=== PATIENT | male | born 1945 | race Caucasian/White ===

== ENCOUNTER 2017-05-25 19:26 | Emergency (ER) | payer MEDICARE, OTHER ==
[2017-05-25 20:00] VITALS: BP 151/65
[2017-05-25] MEDS ORDERED: predniSONE 20 MG Tab PO ONE (21:45)
--- NOTE | 2017-05-25 21:50 | EDM.PDOC ---
ED HPI GENERAL MEDICAL PROBLEM - General Chief Complaint: Lower Extremity Injury/Pain Stated Complaint: POSSIBLE BROKEN FOOT Time Seen by Provider: 05/25/17 20:00 Source of Information: Reports: Patient History Limitations: Reports: No Limitations - History of Present Illness INITIAL COMMENTS - FREE TEXT/NARRATIVE: c/o pain to right foot and hurts to walk, sudden sharp onset last ellie while driving. Denies injury to foot. No similar episodes, No hx or arthritic problems. Location: Reports: Lower Extremity, Right Quality: Reports: Stabbing Worsens with: Reports: Other (weight bearing) Associated Symptoms: Reports: No Other Symptoms Right Feet Pain Score (Numeric/FACES): 8 - Related Data Allergies Allergy/AdvReac Type Severity Reaction Status Date / Time atorvastatin [From Lipitor] Allergy Muscle Verified 05/25/17 20:00 Aches Home Meds: Home Meds Carvedilol [Carvedilol] 6.25 mg PO DAILY 11/09/13 [History] Lisinopril [Lisinopril] 10 mg PO DAILY 11/09/13 [History] Pravastatin [Pravachol] 40 mg PO DAILY 11/09/13 [History] Warfarin Sodium [Warfarin Sodium] 5 mg PO DAILY 11/09/13 [History] Amoxicillin [Amoxicillin] 2,000 mg PO ASDIRECTED PRN 12/17/16 [History] Aspirin [Lo-Dose Aspirin EC] 81 mg PO DAILY 12/17/16 [History] Enoxaparin [Lovenox] 150 mg SUBCUT DAILY 12/17/16 [History] LORazepam [LORazepam] 1 tab PO BEDTIME PRN 12/17/16 [History] Past Medical History HEENT History: Reports: None Cardiovascular History: Reports: CAD, High Cholesterol, Hypertension Respiratory History: Reports: None Gastrointestinal History: Reports: Hemorrhoids Genitourinary History: Reports: BPH, Chronic Renal Insuffiency Musculoskeletal History: Reports: Arthritis, Back Pain, Chronic Neurological History: Reports: None Psychiatric History: Reports: None Endocrine/Metabolic History: Reports: Obesity/BMI 30+, Other (See Below) Other Endocrine/Metabolic History: Prediabetes Hematologic History: Reports: None Immunologic History: Reports: None Oncologic (Cancer) History: Reports: Bladder Dermatologic History: Reports: None - Infectious Disease History Infectious Disease History: Reports: Chicken Pox, Measles, Mumps - Past Surgical History HEENT Surgical History: Reports: Other (See Below) Cardiovascular Surgical History: Reports: Coronary Artery Bypass, Valve Replacement, Other (See Below) GI Surgical History: Reports: Colonoscopy Neurological Surgical History: Reports: C-Spine Other Neurological Surgeries/Procedures: Cervical disc surgery Musculoskeletal Surgical History: Reports: Other (See Below) Other Oncologic Surgeries/Procedures: bladder chemo. Cystourethroscopy with biopsy Social & Family History - Family History HEENT: Reports: None Cardiac: Reports: Blood Clots/VTE/DVT, CAD, High Cholesterol, Hypertension, [place] Respiratory: Reports: None GI: Reports: None : Reports: None OBGYN: Reports: None Musculoskeletal: Reports: None Neurological: Reports: None Psychiatric: Reports: None Endocrine/Metabolic: Reports: None Hematologic: Reports: None Immunologic: Reports: None Dermatologic: Reports: None Oncologic: Reports: Bladder - Tobacco Use Smoking Status *Q: Never Smoker Years of Tobacco use: 10 Used Tobacco, but Quit: Yes Month Tobacco Last Used: 1969 Second Hand Smoke Exposure: No - Caffeine Use Caffeine Use: Reports: Coffee, Tea - Alcohol Use Days Per Week of Alcohol Use: 0 - Recreational Drug Use Recreational Drug Use: No - Living Situation & Occupation Living situation: Reports: , with Family Occupation: Retired Review of Systems - Review of Systems Review Of Systems: See Below Constitutional: Reports: No Symptoms Eyes: Reports: No Symptoms Ears: Reports: No Symptoms Nose: Reports: No Symptoms Mouth/Throat: Reports: No Symptoms Respiratory: Reports: No Symptoms Cardiovascular: Reports: No Symptoms GI/Abdominal: Reports: No Symptoms Genitourinary: Reports: No Symptoms Musculoskeletal: Reports: Foot Pain Skin: Reports: No Symptoms Neurological: Reports: No Symptoms Psychiatric: Reports: No Symptoms ED EXAM, GENERAL - Physical Exam Exam: See Below Exam Limited By: No Limitations General Appearance: Alert, No Apparent Distress Ears: Normal External Exam Nose: Normal Inspection Throat/Mouth: Normal Inspection Head: Atraumatic, Normocephalic Neck: Normal Inspection Respiratory/Chest: No Respiratory Distress, Lungs Clear Cardiovascular: Normal Peripheral Pulses, Regular Rate, Rhythm Peripheral Pulses: 2+: Dorsalis Pedis (L), Dorsalis Pedis (R) GI/Abdominal: Normal Bowel Sounds, Soft, Non-Tender Extremities: Normal Range of Motion, Redness (right lateral forefoot) Neurological: Alert, Oriented, Normal Cognition Skin Exam: Warm, Dry, Intact. No: No Rash, Wound/Incision Course - Vital Signs Last Recorded V/S: Last Vital Signs Temp 97.5 F 05/25/17 19:48 Pulse 73 05/25/17 19:48 Resp 18 05/25/17 19:48 BP 151/65 H 05/25/17 19:48 Pulse Ox 97 05/25/17 19:48 - Orders/Labs/Meds Labs: Laboratory Tests 05/25/17 05/25/17 Range/Units 20:05 20:05 PT 19.6 H (9.0-12.0) SEC INR 1.9 H (0.9-1.2) Uric Acid 8.4 H (2.6-7.2) mg/dL Meds: Medications Discontinued Medications Generic Name Dose Route Start Last Admin Trade Name Ameena PRN Reason Stop Dose Admin Prednisone 20 mg 05/25/17 21:45 05/25/17 21:50 Prednisone PO 05/25/17 21:46 20 mg ONETIME ONE Administration Departure - Departure Time of Disposition: 21:47 Disposition: Home, Self-Care 01 Condition: Good Clinical Impression: Gout Qualifiers: Gout site: foot Gout etiology: unspecified cause Chronicity: acute Laterality: right Qualified Code(s): M10.9 - Gout, unspecified - Discharge Information Instructions: Gout, [id number] Referrals: Cyril Emerson MD [Primary Care Provider] - Forms: ED Department Discharge Additional Instructions: prednisone 20mg x 2 days, 10mg x 3 days, 5mg x 4 days recheck clinic one week weight bearing as tolerated may use tylenol. Do not take ibuprofen in combination with prednisone Recheck INR in one week Today's (1.9)
== END 2017-05-25 22:00 | disposition home or self-care (01) ==
LOC: DL.ED 19:26
DX: M10.9 Gout, unspecified (principal); I25.10 Atherosclerotic heart disease of native coronary artery without angina pectoris; E78.00 Pure hypercholesterolemia, unspecified; I12.9 Hypertensive chronic kidney disease with stage 1 through stage 4 chronic kidney disease, or unspecified chronic kidney disease; N18.9 Chronic kidney disease, unspecified; E66.9 Obesity, unspecified; Z79.899 Other long term (current) drug therapy; Z79.01 Long term (current) use of anticoagulants; Z79.82 Long term (current) use of aspirin; Z88.8 Allergy status to other drugs, medicaments and biological substances
CPT/HCPCS: 36415; 73630; 84550; 85610; 99284; A9270

== ENCOUNTER 2017-10-06 10:15 | Observation (INO) | payer MEDICARE, OTHER ==
[2017-10-06 11:07] LABS: CHLORIDE,CL 100 mmol/L (101-111); SODIUM,NA 136 mmol/L (135-145)
--- NOTE | 2017-10-06 11:25 | EDM.PDOC ---
ED HPI GENERAL MEDICAL PROBLEM - General Chief Complaint: Chest Pain Stated Complaint: HEART ISSUES Time Seen by Provider: 10/06/17 11:10 Source of Information: Reports: Patient History Limitations: Reports: No Limitations - History of Present Illness INITIAL COMMENTS - FREE TEXT/NARRATIVE: This 72 yo male patient reports to the ED with 3 episodes of near syncope today. The patient reports his first episode happened this morning while he was sitting in his lazy boy. The second episode happened when he was resting also. The third episode happened when he was eating oatmeal with his friends. The patient reports he has had similar episodes for the past 2 days. The patient reports he has never passed out, but just felt very dizzy. The patient reports similar episodes since April of this year. The patient does have an artificial valve in his heart. The patient has a history of bladder cancer for which he has had numerous treatments. The patient reports he has been exercising on a regular basis and feels great when he exercises with no near syncope episodes during activity. Onset: Today Onset Date: 10/06/17 Onset Time: 07:30 Duration: Intermittent Location: Reports: Generalized (lightheaded and dizzy) Quality: Reports: Other Severity: Moderate Improves with: Reports: Other (symptoms resolve in less than 10 seconds) Context: Reports: Other Associated Symptoms: Reports: No Other Symptoms - Related Data Allergies Allergy/AdvReac Type Severity Reaction Status Date / Time atorvastatin [From Lipitor] Allergy Muscle Verified 05/25/17 20:00 Aches Home Meds: Home Meds Carvedilol [Carvedilol] 6.25 mg PO ASDIRECTED 11/09/13 [History] Lisinopril [Lisinopril] 10 mg PO DAILY 11/09/13 [History] Pravastatin [Pravachol] 20 mg PO DAILY 11/09/13 [History] Warfarin Sodium [Warfarin Sodium] 5 mg PO DAILY 11/09/13 [History] Aspirin [Lo-Dose Aspirin EC] 81 mg PO DAILY 12/17/16 [History] LORazepam [LORazepam] 1 tab PO BEDTIME PRN 12/17/16 [History] Past Medical History HEENT History: Reports: None Cardiovascular History: Reports: CAD, High Cholesterol, Hypertension Respiratory History: Reports: None Gastrointestinal History: Reports: Hemorrhoids Genitourinary History: Reports: BPH, Chronic Renal Insuffiency Musculoskeletal History: Reports: Arthritis, Back Pain, Chronic Neurological History: Reports: Other (See Below) Other Neuro History: neck surgery Psychiatric History: Reports: Anxiety Endocrine/Metabolic History: Reports: Obesity/BMI 30+ Other Endocrine/Metabolic History: Prediabetes Hematologic History: Reports: None Immunologic History: Reports: None Oncologic (Cancer) History: Reports: Bladder Dermatologic History: Reports: None - Infectious Disease History Infectious Disease History: Reports: Chicken Pox, Measles, Mumps - Past Surgical History Cardiovascular Surgical History: Reports: Coronary Artery Bypass, Valve Replacement GI Surgical History: Reports: Colonoscopy Neurological Surgical History: Reports: C-Spine Other Neurological Surgeries/Procedures: Cervical disc surgery Musculoskeletal Surgical History: Reports: Arthroscopic Knee Other Oncologic Surgeries/Procedures: bladder chemo. Cystourethroscopy with biopsy Social & Family History - Family History HEENT: Reports: None Cardiac: Reports: Blood Clots/VTE/DVT, CAD, High Cholesterol, Hypertension, [place] Respiratory: Reports: None GI: Reports: None : Reports: None OBGYN: Reports: None Musculoskeletal: Reports: None Neurological: Reports: None Psychiatric: Reports: None Endocrine/Metabolic: Reports: None Hematologic: Reports: None Immunologic: Reports: None Dermatologic: Reports: None Oncologic: Reports: Bladder - Tobacco Use Smoking Status *Q: Never Smoker Years of Tobacco use: 10 Used Tobacco, but Quit: Yes Month Tobacco Last Used: 1969 Second Hand Smoke Exposure: No - Caffeine Use Caffeine Use: Reports: None - Alcohol Use Days Per Week of Alcohol Use: 0 - Recreational Drug Use Recreational Drug Use: No - Living Situation & Occupation Living situation: Reports: , with Family Occupation: Retired ED ROS GENERAL - Review of Systems Review Of Systems: ROS reveals no pertinent complaints other than HPI. ED EXAM, GENERAL - Physical Exam Exam: See Below Exam Limited By: No Limitations General Appearance: Alert, WD/WN, Mild Distress Eye Exam: Bilateral Eye: EOMI, Normal Inspection, PERRL Ears: Normal External Exam, Normal Canal, Hearing Grossly Normal, Normal TMs Nose: Normal Inspection, Normal Mucosa, No Blood Throat/Mouth: Normal Inspection, Normal Lips, Normal Teeth, Normal Gums, Normal Oropharynx, Normal Voice, No Airway Compromise Head: Atraumatic, Normocephalic Neck: Normal Inspection, Supple, Non-Tender, Full Range of Motion Respiratory/Chest: No Respiratory Distress, Lungs Clear, Normal Breath Sounds, No Accessory Muscle Use, Chest Non-Tender Cardiovascular: Normal Peripheral Pulses, Regular Rate, Rhythm, No Edema, No Gallop, No JVD, No Rub, Other (click from valve) GI/Abdominal: Normal Bowel Sounds, Soft, Non-Tender, No Organomegaly, No Distention, No Abnormal Bruit, No Mass (Male) Exam: Deferred Rectal (Males) Exam: Deferred Back Exam: Normal Inspection, Full Range of Motion, NT Extremities: Normal Inspection, Normal Range of Motion, Non-Tender, Normal Capillary Refill, No Pedal Edema Neurological: Alert, Oriented, CN II-XII Intact, Normal Cognition, Normal Gait, Normal Reflexes, No Motor/Sensory Deficits Psychiatric: Normal Affect, Normal Mood Skin Exam: Warm, Dry, Intact, Normal Color, No Rash Lymphatic: No Adenopathy Course - Vital Signs Last Recorded V/S: Last Vital Signs Temp 36.4 C 10/06/17 10:44 Pulse 74 10/06/17 10:44 Resp 16 10/06/17 10:44 BP 170/75 H 10/06/17 10:44 Pulse Ox 100 10/06/17 10:44 - Orders/Labs/Meds Orders: Active Orders 24 hr Category Date Time Status EKG Documentation Completion [RC] URGENT Care 10/06/17 10:30 Active Chest 1V Frontal [CR] Urgent Exams 10/06/17 10:30 Taken Labs: Laboratory Tests 10/06/17 10/06/17 10/06/17 Range/Units 10:40 10:40 11:00 WBC 5.9 (5.0-10.0) 10^3/uL RBC 4.35 L (4.6-6.2) 10^6/uL Hgb 13.4 L (14.0-18.0) g/dL Hct 39.9 L (40.0-54.0) % MCV 91.7 (80-100) fL MCH 30.8 (27.0-34.0) pg MCHC 33.6 (33.0-35.0) g/dL Plt Count 173 (150-450) 10^3/uL Neut % (Auto) 75.6 H (42.2-75.2) % Lymph % (Auto) 13.9 L (20.5-50.1) % [place] % (Auto) 8.1 H (2-8) % Eos % (Auto) 1.9 (1.0-3.0) % Baso % (Auto) 0.5 (0.0-1.0) % Sodium 136 (135-145) mmol/L Potassium 4.3 (3.6-5.0) mmol/L Chloride 100 L (101-111) mmol/L Carbon Dioxide 28.0 (21.0-31.0) mmol/L Anion Gap 12.3 BUN 23 H (7-18) mg/dL Creatinine 1.3 (0.6-1.3) mg/dL Est Cr Clr Drug Dosing 48.73 mL/min Estimated GFR (MDRD) 54 BUN/Creatinine Ratio 17.69 Glucose 129 H (74-105) mg/dL Calcium 9.1 (8.4-10.2) mg/dl Total Bilirubin 0.7 (0.2-1.0) mg/dL AST 21 (10-42) IU/L ALT 19 (10-60) IU/L Alkaline Phosphatase 57 (42-121) IU/L Troponin I < 0.02 (0.00-0.02) ng/ml Total Protein 7.2 (6.7-8.2) g/dl Albumin 4.3 (3.2-5.5) g/dl Globulin 2.9 Albumin/Globulin Ratio 1.48 Urine Color Yellow (YELLOW) Urine Appearance Slightly cloudy (CLEAR) Urine pH 7.0 (5.0-9.0) Ur Specific [place] 1.010 (1.005-1.030) Urine Protein Negative (NEGATIVE) Urine Glucose (UA) Negative (NEGATIVE) Urine Ketones Negative (NEGATIVE) Urine Occult Blood Moderate H (NEGATIVE) Urine Nitrite Negative (NEGATIVE) Urine Bilirubin Negative (NEGATIVE) Urine Urobilinogen 0.2 (0.2-1.0) mg/dL Ur Leukocyte Esterase Negative (NEGATIVE) Urine RBC 10-20 H /HPF Urine WBC 0-5 (0-5/HPF) /HPF Ur Epithelial Cells Occasional /HPF Urine Bacteria Occasional (0-FEW/HPF) /HPF Departure - Departure Time of Disposition: 11:37 Disposition: Admitted As Inpatient 67 Condition: Fair Clinical Impression: Near syncope, Frequent unifocal PVCs Care Plan Goals: Discussed the patient's history, examination, lab, EKG and x-ray results with Dr. Corey (Hospitalist with [facility] in [place]). Dr. Corey accepted the patient for observation for continued evaluation and further management as an observation patient. - My Orders Last 24 Hours: My Active Orders 10/06/17 10:30 EKG Documentation Completion [RC] URGENT Chest 1V Frontal [CR] Urgent - Assessment/Plan Last 24 Hours: My Active Orders 10/06/17 10:30 EKG Documentation Completion [RC] URGENT Chest 1V Frontal [CR] Urgent
--- NOTE | 2017-10-06 11:42 | CR ---
Clinical history: 72-year-old male near syncopal episode. Interpretation: Evidence of lower spinal fusion and sternotomy wires anterior chest. Normal cardiac silhouette without cephalization of vascular flow, signs of alveolar edema or dependen t pleural fluid accumulation. No lung mass, hilar lymphadenopathy or focal lobar pneumonia. No atelectasis/collapse. No pneumothora x. CONCLUSION: No acute cardiopulmonary abnormality.
[2017-10-06] MEDS ORDERED: LORazepam 0.5 MG Tab PO PRN (12:17)
[2017-10-06] MEDS ORDERED: Acetaminophen 325 MG Tab PO PRN (12:22)
[2017-10-06] MEDS ORDERED: Sodium Chloride 0.9% 10 ML Syringe FLUSH PRN (12:22)
--- NOTE | 2017-10-06 12:40 | PCM.HP ---
H&P History of Present Illness - General Date of Service: 10/06/17 Admit Problem/Dx: Admission Diagnosis/Problem Admission Diagnosis/Problem Lightheadedness Source of Information: Patient - History of Present Illness Initial Comments - Free Text/Narative: The patient presented with episodes of lightheadedness. He is describing these episodes while at rest no associated palpitation, no chest pain. For about 10 seconds he is feeling lightheaded then everything back to normal. He has been not noticing such episodes with activity. No associated seizure or loss of consciousness or headache. He does not feel dizzy, movement of the head or getting up does not reproduce his symptoms. Otherwise he feels that he is in good health. He is exercising regularly. The patient came into the emergency room. Occasional PVCs were noted on EKG. Prior workup and evaluations have been reviewed from [facility]. His last echocardiogram from November 2016 showed ejection fraction of 50-55% normally functioning prosthetic mitral valve. No carotid ultrasound studies or CT of the head noted. - Related Data Allergies/Adverse Reactions: Allergies Allergy/AdvReac Type Severity Reaction Status Date / Time atorvastatin [From Lipitor] Allergy Muscle Verified 05/25/17 20:00 Aches Home Medications: Home Meds Carvedilol [Carvedilol] 6.25 mg PO ASDIRECTED 11/09/13 [History] Lisinopril [Lisinopril] 10 mg PO DAILY 11/09/13 [History] Pravastatin [Pravachol] 20 mg PO DAILY 11/09/13 [History] Warfarin Sodium [Warfarin Sodium] 5 mg PO DAILY 11/09/13 [History] Aspirin [Lo-Dose Aspirin EC] 81 mg PO DAILY 12/17/16 [History] LORazepam [LORazepam] 1 tab PO BEDTIME PRN 12/17/16 [History] Past Medical History HEENT History: Reports: None Cardiovascular History: Reports: CAD, High Cholesterol, Hypertension Respiratory History: Reports: None Gastrointestinal History: Reports: Hemorrhoids Genitourinary History: Reports: BPH, Chronic Renal Insuffiency Musculoskeletal History: Reports: Arthritis, Back Pain, Chronic Neurological History: Reports: Other (See Below) Other Neuro History: neck surgery Psychiatric History: Reports: Anxiety Endocrine/Metabolic History: Reports: Obesity/BMI 30+ Other Endocrine/Metabolic History: Prediabetes Hematologic History: Reports: None Immunologic History: Reports: None Oncologic (Cancer) History: Reports: Bladder Dermatologic History: Reports: None - Infectious Disease History Infectious Disease History: Reports: Chicken Pox, Measles, Mumps - Past Surgical History Cardiovascular Surgical History: Reports: Coronary Artery Bypass, Valve Replacement GI Surgical History: Reports: Colonoscopy Neurological Surgical History: Reports: C-Spine Other Neurological Surgeries/Procedures: Cervical disc surgery Musculoskeletal Surgical History: Reports: Arthroscopic Knee Other Oncologic Surgeries/Procedures: bladder chemo. Cystourethroscopy with biopsy Social & Family History - Family History HEENT: Reports: None Cardiac: Reports: Blood Clots/VTE/DVT, CAD, High Cholesterol, Hypertension, NE Respiratory: Reports: None GI: Reports: None : Reports: None OBGYN: Reports: None Musculoskeletal: Reports: None Neurological: Reports: None Psychiatric: Reports: None Endocrine/Metabolic: Reports: None Hematologic: Reports: None Immunologic: Reports: None Dermatologic: Reports: None Oncologic: Reports: Bladder - Tobacco Use Smoking Status *Q: Former Smoker Years of Tobacco use: 10 Used Tobacco, but Quit: Yes Month Tobacco Last Used: 1969 Second Hand Smoke Exposure: No - Caffeine Use Caffeine Use: Reports: None - Alcohol Use Days Per Week of Alcohol Use: 0 - Recreational Drug Use Recreational Drug Use: No - Living Situation & Occupation Living situation: Reports: , with Family Occupation: Retired H&P Review of Systems - Review of Systems: Review Of Systems: See Below General: Denies: Fever, Chills Pulmonary: Denies: Shortness of Breath, Wheezing Cardiovascular: Reports: Lightheadedness. Denies: Chest Pain, Palpitations Gastrointestinal: Denies: Abdominal Pain Musculoskeletal: Denies: Neck Pain Psychiatric: Denies: Confusion Neurological: Denies: Seizure, Syncope, Trouble Speaking, Difficulty Walking Exam - Exam Exam: See Below - Vital Signs Vital Signs: Last Vital Signs Temp 36.6 C 10/06/17 12:05 Pulse 66 10/06/17 12:05 Resp 20 10/06/17 12:05 BP 148/78 H 10/06/17 12:05 Pulse Ox 98 10/06/17 12:05 Weight: 98.43 kg - Exam General: Alert, Oriented Neck: Supple Lungs: Clear to Auscultation Cardiovascular: Regular Rate, Regular Rhythm, Other (Metabolic heart valve sound ) GI/Abdominal Exam: Normal Bowel Sounds, Soft, Non-Tender Extremities: No Pedal Edema Neurological: Cranial Nerves Intact, Normal Gait, Normal Speech, Sensation Intact. No: Focal Deficit, Abnormal Gait Neuro Extensive - Mental Status: Alert, Oriented x3, Normal Mood/Affect Psychiatric: Alert, Normal Affect, Normal Mood - Patient Data Result Diagrams: 10/06/17 10:40 10/06/17 10:40 EKG INTERPRETATION Rhythm: NSR (With PVC,) *Q Meaningful Use (ADM) - VTE *Q VTE Criteria *Q: - Stroke *Q Stroke Criteria *Q: - AMI *Q AMI Criteria *Q: - Problem List (1) Lightheadedness SNOMED Code(s): 435215234 ICD Code: R42 - DIZZINESS AND GIDDINESS Status: Acute Current Visit: Yes (2) Coronary artery disease SNOMED Code(s): 37740347 ICD Code: I25.10 - ATHSCL HEART DISEASE OF [place] CORONARY ARTERY W/O ANG PCTRS Status: Acute Current Visit: Yes (3) Chronic kidney disease, stage III (moderate) SNOMED Code(s): 483060616 ICD Code: N18.3 - CHRONIC KIDNEY DISEASE, STAGE 3 (MODERATE) Status: Acute Current Visit: Yes Problem List Initiated/Reviewed/Updated: Yes Orders Last 24hrs: Active Orders 24 hr Category Date Time Status Patient Status [ADT] Routine ADT 10/06/17 12:22 Ordered Antiembolic Devices [RC] PER UNIT ROUTINE Care 10/06/17 12:25 Ordered Oxygen Therapy [RC] PRN Care 10/06/17 12:22 Ordered Peripheral IV Care [RC] . DIRECTED Care 10/06/17 12:25 Ordered Telemetry Monitoring [Cardiac Monitoring] [RC] . Care 10/06/17 12:17 Ordered DIRECTED Up With Assistance [RC] ASDIRECTED Care 10/06/17 12:22 Ordered VTE/DVT Education [RC] PER UNIT ROUTINE Care 10/06/17 12:22 Ordered Vital Signs [RC] Q4H Care 10/06/17 12:22 Ordered Regular Diet [DIET] Diet 10/06/17 Dinner Ordered Carotid Comp [US] Routine Exams 10/06/17 12:16 Ordered Echo Comp wo Cont [US] Routine Exams 10/06/17 12:16 Ordered Head wo Cont [CT] Routine Exams 10/06/17 12:31 Ordered BASIC METABOLIC PANEL,BMP [CHEM] AM Lab 10/07/17 05:15 Ordered CBC WITH AUTO DIFF [HEME] AM Lab 10/07/17 05:15 Ordered Acetaminophen [Tylenol] Med 10/06/17 12:22 Ordered 650 mg PO Q4H PRN Aspirin [Halfprin] Med 10/07/17 09:00 Ordered 81 mg PO DAILY Carvedilol [Coreg] Med 10/07/17 08:00 Active 12.5 mg PO WITHBREAKFAST Carvedilol [Coreg] Med 10/06/17 12:30 Ordered 6.25 mg PO ASDIRECTED LORazepam [Ativan] Med 10/06/17 12:17 Ordered 1 tab PO BEDTIME PRN Lisinopril [Prinivil] Med 10/07/17 09:00 Ordered 10 mg PO DAILY Oxybutynin [Oxybutynin ER] Med 10/07/17 09:00 Ordered 10 mg PO DAILY Pravastatin Med 10/07/17 09:00 Ordered 20 mg PO DAILY Sodium Chloride 0.9% [Saline Flush] Med 10/06/17 12:22 Ordered 10 ml FLUSH ASDIRECTED PRN Warfarin Pharmacy to Dose [Pharmacy to Dose - Warfarin] Med 10/06/17 12:30 Ordered 1 dose .XX ASDIRECTED Warfarin [Coumadin] Med 10/06/17 14:00 Once 5 mg PO ONETIME ONE Peripheral IV Insertion Adult [OM.PC] Routine Oth 10/06/17 12:22 Ordered Saline Lock Insert [OM.PC] Routine Oth 10/06/17 12:22 Ordered Sequential Compression Device [OM.PC] Per Unit Routine Oth 10/06/17 12:25 Ordered Resuscitation Status Routine Resus Stat 10/06/17 12:22 Ordered Medication Orders Acetaminophen (Tylenol) 650 mg PO Q4H PRN PRN Reason: Pain (Mild 1-3)/fever Aspirin (Halfprin) 81 mg PO DAILY [facility] Carvedilol (Coreg) 12.5 mg PO WITHDINNER [facility] Carvedilol (Coreg) 6.25 mg PO WITHBREAKFAST [facility] Lisinopril (Prinivil) 10 mg PO DAILY [facility] Lorazepam (Ativan) 0.5 mg PO BEDTIME PRN PRN Reason: Sleep Non-Formulary Medication (Pravastatin) 20 mg PO DAILY [facility] Oxybutynin Chloride (Oxybutynin Er) 10 mg PO DAILY [facility] Sodium Chloride (Saline Flush) 10 ml FLUSH ASDIRECTED PRN PRN Reason: Keep Vein Open Warfarin Sodium (Pharmacy To Dose - Warfarin) 1 dose .XX ASDIRECTED [facility] Warfarin Sodium (Coumadin) 5 mg PO ONETIME ONE Stop: 10/06/17 14:01 Assessment/Plan Comment:: The patient presented with episodes of lightheadedness. He is describing these episodes while at rest no associated palpitation, no chest pain. For about 10 seconds he is feeling lightheaded then everything back to normal. He has been not noticing such episodes with activity. No associated seizure or loss of consciousness or headache. He does not feel dizzy, movement of the head or getting up does not reproduce his symptoms. Otherwise he feels that he is in good health. He is exercising regularly. The patient came into the emergency room. Occasional PVCs were noted on EKG. Prior workup and evaluations have been reviewed from [facility]. His last echocardiogram from November 2016 showed ejection fraction of 50-55% normally functioning prosthetic mitral valve. No carotid ultrasound studies or CT of the head noted. #1 episodes of lightheadedness that occur at rest No associated palpitation, headache, syncopal, seizure The patient has good exercise tolerance along with this Troponin was negative EKG showed no major abnormalities that could be responsible for this. For workup I will obtain a carotid ultrasound, CT of the head, echocardiogram. We'll monitor on telemetry. #2 status post mitral valve replacement Will check an INR and adjust Coumadin dosing as needed for target INR of 2.5-3.5 #3 coronary artery disease Continue to maintain on aspirin, Coreg Monitor on telemetry #4 chronic kidney disease stage III Appears at baseline #5 DVT prophylaxis will be with subcutaneous heparin
[2017-10-06] MEDS ORDERED: Carvedilol 6.25 MG Tab PO SCH ×2 (12:45→18:00)
[2017-10-06] MEDS ORDERED: Warfarin 5 MG Tab PO ONE (14:00)
--- NOTE | 2017-10-06 14:34 | CT ---
Clinical history: 72-year-old male history of prostate/bladder cancer and dizziness. Rule out intracr anial metastasis or other abnormality. "No intracranial abnormality" reported on [address] s can of the head for "vertigo". Scan technique: Volume acquisition of data unenhanced CT scan of the head and brain obtained with pat ient lying supine on the Siemens multi slice CT scanner [facility]. All data archived in the PAC system for storage and study (bone/brain windows). Interpretation: No acute new intracranial abnormality identified in the interval since CT images 28 J an 2016. Generalized mild but symmetric cerebral cortical atrophy pattern with underlying mirror-image normal ventricular system. Physiologic midline pineal and symmetric choroid plexus calcifications. No new supratentorial or posterior fossa mass lesion. No hydrocephalus. Uniformly thick bony calvarium and symmetric clear pneumatization of the paranasal/mastoid sinuses. No extracerebral/and cranial epidural or subdural hematoma. No sign of ischemic infarct/encephalomalacia or acute intracerebral/intraventricular/subarachnoid ble ed.
--- NOTE | 2017-10-06 15:38 | US ---
CLINICAL HISTORY: 72 hypertensive male ex-smoker with significant history of coronary artery bypass s urgery, previous [place] and near syncopal episode. CT scan of the head today reveals "no new intracranial abnormality" since CT exam 2016. INTERPRETATION: Echogenic atheromatous plaque with smooth nonulcerated surface identified in the dist al right common carotid artery and bulb as well as the left common carotid artery bulb extending into the origin of the ipsilateral left internal carotid artery (densely calcified plaque at the origin o f the right external carotid artery). Normal antegrade vertebral artery flow present bilaterally. Elevated flow velocities in both common carotid arteries consistent with a moderate severe stenosis. No hemodynamically significant or surgical stenosis either internal carotid artery but abnormally jackie vated flow velocities in the nonclinical external carotid arteries today. Peak systolic flow velocity right common carotid artery 140 cm/sec; right internal carotid artery 111 cm/sec; and right external carotid artery 138 cm/sec. IC/CC ratio on the right 0.79. Peak systolic flow velocity left common carotid artery 191 cm/sec; left internal carotid artery 114 c m/sec; and left external carotid artery 158 cm/sec. IC/CC ratio on the left 0.6. CONCLUSION: Extensive atheromatous plaque and abnormally elevated flow velocities both common carotid arteries (left greater than right). No hemodynamically significant or surgical stenosis either inter nal carotid artery. Normal antegrade vertebral artery flow present bilaterally.
[2017-10-06] MEDS ORDERED: Pravastatin 20 MG Tab PO SCH (21:00)
[2017-10-06] MEDS ORDERED: Lisinopril 10 MG Tab PO SCH (21:00)
[2017-10-07 06:54] VITALS: BP 126/72
--- NOTE | 2017-10-07 08:08 | PCM.DCSUM1 ---
Discharge Summary - Hospital Course Free Text/Narrative:: The patient presented with episodes of lightheadedness. He is describing these episodes while at rest no associated palpitation, no chest pain. For about 10 seconds he is feeling lightheaded then everything back to normal. He has been not noticing such episodes with activity. No associated seizure or loss of consciousness or headache. He does not feel dizzy, movement of the head or getting up does not reproduce his symptoms. Otherwise he feels that he is in good health. He is exercising regularly. The patient came into the emergency room. Occasional PVCs were noted on EKG. Prior workup and evaluations have been reviewed from [facility]. His last echocardiogram from November 2016 showed ejection fraction of 50-55% normally functioning prosthetic mitral valve. #1 episodes of lightheadedness that occur at rest No associated palpitation, headache, syncopal, seizure The patient has good exercise tolerance along with this Troponin was negative initial EKG showed no major abnormalities that could be responsible for this. ( had a single PVC) For workup I have obtained a carotid ultrasound (showed plaque but no hemodynamically significant stenosis), CT of the head (no acute change), echocardiogram (pending). Overnight on telemetry had multiple 5-6 sec ventricular pause that corresponded to pt's symptoms. Help evening coreg dose. will transfer to [facility] or [facility]. eval #2 status post mitral valve replacement INR: 2.4 - hold coumadin today for possible pacemaker procedure #3 coronary artery disease Continue to maintain on aspirin, hold Coreg Monitor on telemetry #4 chronic kidney disease stage III Appears at baseline - Discharge Data Discharge Date: 10/07/17 Discharge Disposition: DC/Tfer to Acute Hospital 02 Condition: Fair - Discharge Diagnosis/Problem(s) (1) Lightheadedness SNOMED Code(s): 602991271 ICD Code: R42 - DIZZINESS AND GIDDINESS Status: Acute Current Visit: Yes (2) Coronary artery disease SNOMED Code(s): 75468772 ICD Code: I25.10 - ATHSCL HEART DISEASE OF [place] CORONARY ARTERY W/O ANG PCTRS Status: Acute Current Visit: Yes (3) Chronic kidney disease, stage III (moderate) SNOMED Code(s): 391076322 ICD Code: N18.3 - CHRONIC KIDNEY DISEASE, STAGE 3 (MODERATE) Status: Acute Current Visit: Yes (4) Heart block AV third degree SNOMED Code(s): 46585155 ICD Code: I44.2 - ATRIOVENTRICULAR BLOCK, COMPLETE Status: Acute Current Visit: Yes - Patient Instructions Diet: Heart Healthy Diet Activity: As Tolerated - Discharge Plan Home Medications: Home Meds Lisinopril 10 mg PO BEDTIME 11/09/13 [History] Pravastatin [Pravachol] 20 mg PO BEDTIME 11/09/13 [History] Aspirin [Lo-Dose Aspirin EC] 81 mg PO DAILY 12/17/16 [History] LORazepam 1 tab PO BEDTIME PRN 12/17/16 [History] - Discharge Summary/Plan Comment DC Time >30 min.: Yes (d/w dr. Carrion, dr. Flood, transfer arrangeents) - General Info Date of Service: 10/07/17 Admission Dx/Problem (Free Text: Admission Diagnosis/Problem Admission Diagnosis/Problem Lightheadedness Functional Status: Reports: Tolerating Diet - Review of Systems General: Denies: Fever Pulmonary: Denies: Shortness of Breath Cardiovascular: Denies: Chest Pain Gastrointestinal: Denies: Abdominal Pain - Patient Data Vitals - Most Recent: Last Vital Signs Temp 36.2 C 10/07/17 06:53 Pulse 64 10/07/17 06:53 Resp 20 10/07/17 06:53 BP 126/72 10/07/17 06:53 Pulse Ox 98 10/07/17 06:53 Weight - Most Recent: 98.43 kg I&O - Last 24 hours: Intake & Output 10/06/17 10/07/17 10/07/17 22:59 06:59 14:59 Intake Total 200 100 Balance 200 100 Lab Results - Last 24 hrs: Laboratory Results - last 24 hr 10/07/17 10/07/17 10/07/17 Range/Units 05:55 05:55 05:55 WBC 6.9 (5.0-10.0) 10^3/uL RBC 4.39 L (4.6-6.2) 10^6/uL Hgb 13.5 L (14.0-18.0) g/dL Hct 40.3 (40.0-54.0) % MCV 91.8 (80-100) fL MCH 30.8 (27.0-34.0) pg MCHC 33.5 (33.0-35.0) g/dL Plt Count 174 (150-450) 10^3/uL Neut % (Auto) 73.9 (42.2-75.2) % Lymph % (Auto) 14.0 L (20.5-50.1) % Harney % (Auto) 9.3 H (2-8) % Eos % (Auto) 2.2 (1.0-3.0) % Baso % (Auto) 0.6 (0.0-1.0) % PT 24.2 H (9.0-12.0) SEC INR 2.4 H (0.9-1.2) Sodium 138 (135-145) mmol/L Potassium 4.2 (3.6-5.0) mmol/L Chloride 106 (101-111) mmol/L Carbon Dioxide 26.0 (21.0-31.0) mmol/L Anion Gap 10.2 BUN 22 H (7-18) mg/dL Creatinine 1.3 (0.6-1.3) mg/dL Est Cr Clr Drug Dosing 48.73 mL/min Estimated GFR (MDRD) 54 Glucose 104 (74-105) mg/dL Calcium 8.9 (8.4-10.2) mg/dl Med Orders - Current: Current Medications Acetaminophen (Tylenol) 650 mg PO Q4H PRN PRN Reason: Pain (Mild 1-3)/fever Aspirin (Halfprin) 81 mg PO DAILY [facility] Lisinopril (Prinivil) 10 mg PO BEDTIME [facility] Last Admin: 10/06/17 20:58 Dose: 10 mg Lorazepam (Ativan) 0.5 mg PO BEDTIME PRN PRN Reason: Sleep Oxybutynin Chloride (Oxybutynin Er) 10 mg PO DAILY [facility] Pravastatin Sodium (Pravachol) 20 mg PO BEDTIME [facility] Last Admin: 10/06/17 20:58 Dose: 20 mg Sodium Chloride (Saline Flush) 10 ml FLUSH ASDIRECTED PRN PRN Reason: Keep Vein Open Discontinued Medications Carvedilol (Coreg) 12.5 mg PO WITHDINNER [facility] Carvedilol (Coreg) 6.25 mg PO WITHBREAKFAST [facility] Last Admin: 10/06/17 15:05 Dose: 6.25 mg Warfarin Sodium (Pharmacy To Dose - Warfarin) 1 dose .XX ASDIRECTED [facility] Warfarin Sodium (Coumadin) 5 mg PO ONETIME ONE Stop: 10/06/17 14:01 Last Admin: 10/06/17 15:05 Dose: 5 mg - Exam General: Reports: Alert, Moderate Distress Neck: Reports: Supple Lungs: Reports: Clear to Auscultation, Normal Respiratory Effort Cardiovascular: Reports: Regular Rate, Regular Rhythm GI/Abdominal Exam: Normal Bowel Sounds, Soft, Non-Tender Extremities: No Pedal Edema *Q Meaningful Use (DIS) - VTE *Q VTE Criteria *Q: - Stroke *Q Stroke Criteria *Q: - AMI *Q AMI Criteria *Q:
[2017-10-07] MEDS ORDERED: Aspirin 81 MG Tab.EC PO SCH (09:00)
[2017-10-07] MEDS ORDERED: Oxybutynin 5 MG Tab.ER PO SCH (09:00)
--- NOTE | 2017-10-08 09:59 | EKG ---
10/06/2017- VIOLETA BURNETT - EKG per my reading shows sinus rhythm with inferior Q-waves and PVC. [facility] /[id number]
== END 2017-10-07 10:40 ==
LOC: DL.ED 10:15 → UNDOADMOB 12:04 → DL.MS 12:04
PROVIDERS: ADMIT Internal Medicine; ATTEND Internal Medicine
DX: R42 Dizziness and giddiness (principal); I25.10 Atherosclerotic heart disease of native coronary artery without angina pectoris; I44.2 Atrioventricular block, complete; I12.9 Hypertensive chronic kidney disease with stage 1 through stage 4 chronic kidney disease, or unspecified chronic kidney disease; N18.3 Chronic kidney disease, stage 3 (moderate); N40.0 Benign prostatic hyperplasia without lower urinary tract symptoms; E78.00 Pure hypercholesterolemia, unspecified; F41.9 Anxiety disorder, unspecified; E66.9 Obesity, unspecified; Z95.2 Presence of prosthetic heart valve; Z79.01 Long term (current) use of anticoagulants; Z79.82 Long term (current) use of aspirin; Z79.899 Other long term (current) drug therapy; Z88.8 Allergy status to other drugs, medicaments and biological substances; Z68.30 Body mass index [BMI] 30.0-30.9, adult; Z95.1 Presence of aortocoronary bypass graft; Z87.891 Personal history of nicotine dependence
CPT/HCPCS: 36415; 70450; 71010; 80048; 80053; 81001; 84484; 85025; 85610; 93005; 93010; 93306; 93880; 99285; A9270; 99284; G0378

== ENCOUNTER 2017-10-26 12:04 | Emergency (ER) | payer MEDICARE, OTHER ==
[2017-10-26 12:14] VITALS: BP 161/62
[2017-10-26] MEDS ORDERED: Sodium Chloride 0.9% 10 ML Syringe FLUSH PRN (12:56)
--- NOTE | 2017-10-26 12:56 | EDM.PDOC ---
ED HPI GENERAL MEDICAL PROBLEM - General Chief Complaint: Cardiovascular Problem Stated Complaint: [id number] BLEEDING PACE MAKER BUSTED OPEN Time Seen by Provider: 10/26/17 12:27 Source of Information: Reports: Patient, RN, RN Notes Reviewed History Limitations: Reports: No Limitations - History of Present Illness INITIAL COMMENTS - FREE TEXT/NARRATIVE: Pt presents to the ER with c/o bleeding from the site of his pacemaker. He states he had the pacemaker placed on 10/[address] Doyle at [facility] in [place]. He states he had clinic appointments on Friday and Friday where his pacemaker was checked. Today he states he was sitting down and felt something warm and wet on his chest. He states the pacemaker was oozing blood. He denies having any problem with the pacemaker or insertion site up to this point. Pt denies any recent illness, fever, chills, N/V/D, SOB, CP. He states his last INR was approximately 2 weeks ago and was 2.4. Onset: Today, Sudden Location: Reports: Chest - Related Data Allergies Allergy/AdvReac Type Severity Reaction Status Date / Time atorvastatin [From Lipitor] Allergy Muscle Verified 10/26/17 12:14 Aches Home Meds: Home Meds Lisinopril 10 mg PO BEDTIME 11/09/13 [History] Pravastatin [Pravachol] 20 mg PO BEDTIME 11/09/13 [History] Aspirin [Lo-Dose Aspirin EC] 81 mg PO DAILY 12/17/16 [History] LORazepam 1 tab PO BEDTIME PRN 12/17/16 [History] Carvedilol [Coreg] 6.25 mg PO DAILY 10/26/17 [History] Carvedilol [Coreg] 12.5 mg PO BEDTIME 10/26/17 [History] Warfarin Sodium [Warfarin Sodium] 5 mg PO ASDIRECTED 10/26/17 [History] Past Medical History HEENT History: Reports: None Cardiovascular History: Reports: CAD, High Cholesterol, Hypertension, Pacemaker Respiratory History: Reports: None Gastrointestinal History: Reports: Hemorrhoids Genitourinary History: Reports: BPH, Chronic Renal Insuffiency Musculoskeletal History: Reports: Arthritis, Back Pain, Chronic Neurological History: Reports: Other (See Below) Other Neuro History: neck surgery Psychiatric History: Reports: Anxiety Endocrine/Metabolic History: Reports: Obesity/BMI 30+ Other Endocrine/Metabolic History: Prediabetes Hematologic History: Reports: None Immunologic History: Reports: None Oncologic (Cancer) History: Reports: Bladder Dermatologic History: Reports: None - Infectious Disease History Infectious Disease History: Reports: Chicken Pox, Measles, Mumps - Past Surgical History Cardiovascular Surgical History: Reports: Coronary Artery Bypass, Valve Replacement GI Surgical History: Reports: Colonoscopy Neurological Surgical History: Reports: C-Spine Other Neurological Surgeries/Procedures: Cervical disc surgery Musculoskeletal Surgical History: Reports: Arthroscopic Knee Other Oncologic Surgeries/Procedures: bladder chemo. Cystourethroscopy with biopsy Social & Family History - Family History HEENT: Reports: None Cardiac: Reports: Blood Clots/VTE/DVT, CAD, High Cholesterol, Hypertension, [place] Respiratory: Reports: None GI: Reports: None : Reports: None OBGYN: Reports: None Musculoskeletal: Reports: None Neurological: Reports: None Psychiatric: Reports: None Endocrine/Metabolic: Reports: None Hematologic: Reports: None Immunologic: Reports: None Dermatologic: Reports: None Oncologic: Reports: Bladder - Tobacco Use Smoking Status *Q: Never Smoker Years of Tobacco use: 10 Used Tobacco, but Quit: Yes Month Tobacco Last Used: 1969 Second Hand Smoke Exposure: No - Caffeine Use Caffeine Use: Reports: Coffee - Alcohol Use Days Per Week of Alcohol Use: 0 - Recreational Drug Use Recreational Drug Use: No - Living Situation & Occupation Living situation: Reports: , with Family Occupation: Retired ED ROS GENERAL - Review of Systems Review Of Systems: ROS reveals no pertinent complaints other than HPI. ED EXAM, GENERAL - Physical Exam Exam: See Below Exam Limited By: No Limitations General Appearance: Alert, WD/WN, No Apparent Distress Eye Exam: Bilateral Eye: EOMI, Normal Inspection Ears: Normal External Exam, Hearing Grossly Normal Nose: Normal Inspection Throat/Mouth: Normal Inspection, Normal Voice, No Airway Compromise Head: Atraumatic, Normocephalic Neck: Normal Inspection, Supple, Non-Tender, Full Range of Motion Respiratory/Chest: No Respiratory Distress, Lungs Clear, Normal Breath Sounds, No Accessory Muscle Use, Chest Non-Tender Cardiovascular: Normal Peripheral Pulses, Regular Rate, Rhythm, No Edema, No Gallop, No JVD, No Murmur, No Rub, Other (valve click noted) Peripheral Pulses: 2+: Radial (L), Radial (R), Dorsalis Pedis (L), Dorsalis Pedis (R) GI/Abdominal: Normal Bowel Sounds, Soft, Non-Tender, No Organomegaly, No Distention, No Abnormal Bruit, No Mass (Male) Exam: Deferred Rectal (Males) Exam: Deferred Back Exam: Normal Inspection, Full Range of Motion Extremities: Normal Inspection, Normal Range of Motion, Non-Tender, No Pedal Edema, Normal Capillary Refill Neurological: Alert, Oriented, CN II-XII Intact, Normal Cognition, Normal Gait, Normal Reflexes, No Motor/Sensory Deficits Psychiatric: Normal Affect, Normal Mood Skin Exam: Warm, Dry, Normal Color, No Rash, Ecchymosis (left upper chest at pacemaker site green/dark purple ecchymosis, appears to have hematoma developing below the pacemaker. ) Lymphatic: No Adenopathy EKG INTERPRETATION EKG Date: 10/26/17 Time: 12:54 Rhythm: NSR Rate (Beats/Min): 66 Comparison: No Change EKG Interpretation Comments: Nonspecific Intraventricular conduction delay - Inferior infarct - age indeterminate No PVC noted as per last EKG Course - Vital Signs Last Recorded V/S: Last Vital Signs Temp 96.3 F 10/26/17 12:08 Pulse 70 10/26/17 12:08 Resp 18 10/26/17 12:08 BP 161/62 H 10/26/17 12:08 Pulse Ox 100 10/26/17 12:08 - Orders/Labs/Meds Orders: Active Orders 24 hr Category Date Time Status Peripheral IV Care [RC] . DIRECTED Care 10/26/17 12:56 Active Peripheral IV Insertion Adult [OM.PC] Stat Oth 10/26/17 12:56 Ordered Labs: Laboratory Tests 10/26/17 10/26/17 10/26/17 Range/Units 12:40 12:40 12:40 WBC 7.6 (5.0-10.0) 10^3/uL RBC 3.87 L (4.6-6.2) 10^6/uL Hgb 11.8 L D (14.0-18.0) g/dL Hct 35.7 L (40.0-54.0) % MCV 92.2 (80-100) fL MCH 30.5 (27.0-34.0) pg MCHC 33.1 (33.0-35.0) g/dL Plt Count 201 (150-450) 10^3/uL Neut % (Auto) 71.2 (42.2-75.2) % Lymph % (Auto) 14.6 L (20.5-50.1) % [place] % (Auto) 11.7 H (2-8) % Eos % (Auto) 2.1 (1.0-3.0) % Baso % (Auto) 0.4 (0.0-1.0) % Add Manual Diff Yes Neutrophils % (Manual) 72 (42-75) % Band Neutrophils % 1 % Lymphocytes % (Manual) 11 L (20-50) % Monocytes % (Manual) 8 (2-8) % Eosinophils % (Manual) 5 H (1-3) % Basophils % (Manual) 3 Platelet Estimate Adequate PT 24.0 H (9.0-12.0) SEC INR 2.4 H (0.9-1.2) Sodium 134 L (135-145) mmol/L Potassium 4.8 (3.6-5.0) mmol/L Chloride 102 (101-111) mmol/L Carbon Dioxide 26.0 (21.0-31.0) mmol/L Anion Gap 10.8 BUN 29 H (7-18) mg/dL Creatinine 1.3 (0.6-1.3) mg/dL Est Cr Clr Drug Dosing 48.73 mL/min Estimated GFR (MDRD) 54 BUN/Creatinine Ratio 22.30 Glucose 80 (74-105) mg/dL Calcium 8.8 (8.4-10.2) mg/dl Total Bilirubin 0.6 (0.2-1.0) mg/dL AST 21 (10-42) IU/L ALT 28 (10-60) IU/L Alkaline Phosphatase 53 (42-121) IU/L Total Protein 6.6 L (6.7-8.2) g/dl Albumin 3.8 (3.2-5.5) g/dl Globulin 2.8 Albumin/Globulin Ratio 1.36 Meds: Medications Discontinued Medications Generic Name Dose Route Start Last Admin Trade Name Freq PRN Reason Stop Dose Admin Sodium Chloride 10 ml 10/26/17 12:56 10/26/17 13:08 Saline Flush FLUSH 10 ml ASDIRECTED PRN Administration Keep Vein Open Departure - Departure Time of Disposition: 12:55 Disposition: DC/Tfer to Acute Hospital 02 Reason for Transfer *Q: Other Condition: Fair Clinical Impression: Hematoma Referrals: PCP,Unobtain [Primary Care Provider] - Forms: ED Department Discharge, Interfacility Transfer EMTALA - My Orders Last 24 Hours: My Active Orders 10/26/17 12:56 Peripheral IV Care [RC] . DIRECTED Peripheral IV Insertion Adult [OM.PC] Stat - Assessment/Plan Last 24 Hours: My Active Orders 10/26/17 12:56 Peripheral IV Care [RC] . DIRECTED Peripheral IV Insertion Adult [OM.PC] Stat
--- NOTE | 2017-10-28 12:33 | EKG ---
10/26/2017 - VIOLETA BURNETT - A 12-lead EKG shows normal sinus rhythm with heart rate of 66. No significant ST elevation or ST depression noted on this 12-lead EKG. Nonspecific ST-T wave changes noted on V2 and V3. [facility] /[id number]
== END 2017-10-26 13:21 ==
LOC: DL.ED 12:04
DX: I97.638 Postprocedural hematoma of a circulatory system organ or structure following other circulatory system procedure (principal); I12.9 Hypertensive chronic kidney disease with stage 1 through stage 4 chronic kidney disease, or unspecified chronic kidney disease; N18.9 Chronic kidney disease, unspecified; Z88.8 Allergy status to other drugs, medicaments and biological substances; Z79.82 Long term (current) use of aspirin; Z79.899 Other long term (current) drug therapy; Z79.01 Long term (current) use of anticoagulants
CPT/HCPCS: 36415; 80053; 85025; 85610; 99285; J7050; 99282

== ENCOUNTER 2019-03-13 00:02 | Emergency (ER) | payer MEDICARE, OTHER ==
[2019-03-13 00:10] VITALS: BP 106/71
[2019-03-13] MEDS ORDERED: methylPREDNISolone Sodium Succinate 125 MG/2 ML SDV IM ONE (00:12)
--- NOTE | 2019-03-13 00:17 | EDM.PDOC ---
ED HPI GENERAL MEDICAL PROBLEM - General Chief Complaint: Lower Extremity Injury/Pain Stated Complaint: left foot, gout Time Seen by Provider: 03/13/19 00:11 Source of Information: Reports: Patient History Limitations: Reports: No Limitations - History of Present Illness INITIAL COMMENTS - FREE TEXT/NARRATIVE: c/o gout exac since finishing his pred Rx 4 days ago. Left Foot Pain Score (Numeric/FACES): 8 - Related Data Allergies Allergy/AdvReac Type Severity Reaction Status Date / Time atorvastatin [From Lipitor] Allergy Muscle Verified 03/13/19 00:10 Aches Home Meds: Home Meds Lisinopril 10 mg PO BEDTIME 11/09/13 [History] Pravastatin [Pravachol] 20 mg PO BEDTIME 11/09/13 [History] Aspirin [Lo-Dose Aspirin EC] 81 mg PO DAILY 12/17/16 [History] LORazepam 1 tab PO BEDTIME PRN 12/17/16 [History] Carvedilol [Coreg] 6.25 mg PO DAILY 10/26/17 [History] Carvedilol [Coreg] 12.5 mg PO BEDTIME 10/26/17 [History] Warfarin Sodium 5 mg PO ASDIRECTED 10/26/17 [History] Allopurinol [Zyloprim] 100 mg PO DAILY 03/13/19 [History] Past Medical History HEENT History: Reports: None Cardiovascular History: Reports: CAD, High Cholesterol, Hypertension, Pacemaker Respiratory History: Reports: None Gastrointestinal History: Reports: Hemorrhoids Genitourinary History: Reports: BPH, Chronic Renal Insuffiency Musculoskeletal History: Reports: Arthritis, Back Pain, Chronic Neurological History: Reports: Other (See Below) Other Neuro History: neck surgery Psychiatric History: Reports: Anxiety Endocrine/Metabolic History: Reports: Obesity/BMI 30+ Other Endocrine/Metabolic History: Prediabetes Hematologic History: Reports: None Immunologic History: Reports: None Oncologic (Cancer) History: Reports: Bladder Dermatologic History: Reports: None - Infectious Disease History Infectious Disease History: Reports: Chicken Pox, Measles, Mumps - Past Surgical History Cardiovascular Surgical History: Reports: Coronary Artery Bypass, Valve Replacement GI Surgical History: Reports: Colonoscopy Neurological Surgical History: Reports: C-Spine Other Neurological Surgeries/Procedures: Cervical disc surgery Musculoskeletal Surgical History: Reports: Arthroscopic Knee Other Oncologic Surgeries/Procedures: bladder chemo. Cystourethroscopy with biopsy Social & Family History - Family History HEENT: Reports: None Cardiac: Reports: Blood Clots/VTE/DVT, CAD, High Cholesterol, Hypertension, [place] Respiratory: Reports: None GI: Reports: None : Reports: None OBGYN: Reports: None Musculoskeletal: Reports: None Neurological: Reports: None Psychiatric: Reports: None Endocrine/Metabolic: Reports: None Hematologic: Reports: None Immunologic: Reports: None Dermatologic: Reports: None Oncologic: Reports: Bladder - Caffeine Use Caffeine Use: Reports: Coffee - Living Situation & Occupation Living situation: Reports: , with Family Occupation: Retired Review of Systems - Review of Systems Review Of Systems: ROS reveals no pertinent complaints other than HPI. ED EXAM, GENERAL - Physical Exam Exam: See Below Exam Limited By: No Limitations General Appearance: Alert, WD/WN, Mild Distress, Other (left foot pain) Ears: Hearing Grossly Normal Throat/Mouth: Normal Voice, No Airway Compromise Head: Atraumatic Neck: Non-Tender, Full Range of Motion Respiratory/Chest: No Respiratory Distress Cardiovascular: Regular Rate, Rhythm GI/Abdominal: Soft, Non-Tender Extremities: Other (left foot mild swelling of ankle without erythema, NV wnl, gait limited to pain) Neurological: Alert, Oriented, Normal Cognition, No Motor/Sensory Deficits Psychiatric: Normal Affect, Normal Mood Skin Exam: Warm, Dry, Normal Color Lymphatic: No Adenopathy Course - Vital Signs Last Recorded V/S: Last Vital Signs Temp 36.2 C 03/13/19 00:09 Pulse 100 03/13/19 00:09 Resp 19 03/13/19 00:09 BP 106/71 03/13/19 00:09 Pulse Ox 100 03/13/19 00:09 - Orders/Labs/Meds Meds: Medications Discontinued Medications Generic Name Dose Route Start Last Admin Trade Name Freq PRN Reason Stop Dose Admin Ketorolac Tromethamine 30 mg 03/13/19 00:54 03/13/19 01:01 Toradol IVPUSH 03/13/19 00:55 30 mg ONETIME ONE Administration Methylprednisolone Sodium Succinate 125 mg 03/13/19 00:12 03/13/19 00:17 Solu-Medrol IM 03/13/19 00:13 125 mg ONETIME ONE Administration Departure - Departure Time of Disposition: 01:20 Disposition: Home, Self-Care 01 Condition: Good Clinical Impression: Gout Qualifiers: Gout site: ankle Gout etiology: unspecified cause Chronicity: acute Laterality : left Qualified Code(s): M10.9 - Gout, unspecified - Discharge Information Instructions: Gout, [id number] Forms: ED Department Discharge Additional Instructions: 1) elevate foot as much as possible next 48 hours 2) try heat to sore area 3) follow up at clinic rx given; prednisone 20mg bid x 20
[2019-03-13] MEDS ORDERED: Ketorolac 30 MG/ML SDV IVPUSH ONE (00:54)
== END 2019-03-13 01:20 | disposition home or self-care (01) ==
LOC: DL.ED 00:02
DX: M10.9 Gout, unspecified (principal); I25.10 Atherosclerotic heart disease of native coronary artery without angina pectoris; I12.9 Hypertensive chronic kidney disease with stage 1 through stage 4 chronic kidney disease, or unspecified chronic kidney disease; Z95.0 Presence of cardiac pacemaker; N18.9 Chronic kidney disease, unspecified; R73.03 Prediabetes; F41.9 Anxiety disorder, unspecified; E78.00 Pure hypercholesterolemia, unspecified; Z88.8 Allergy status to other drugs, medicaments and biological substances; Z79.899 Other long term (current) drug therapy; Z79.01 Long term (current) use of anticoagulants
CPT/HCPCS: 96372; 96374; 99283; J1885; J2930

== ENCOUNTER 2020-11-21 06:27 | Day surgery (SDC) | payer MEDICARE, OTHER ==
[~2020-11-21 06:27] MED LIST: Dextrose 5%-0.45% NaCl 1,000 ML IV SCH; Midazolam 1 MG/ML 2 ML SDV ONE; Sodium Chloride 0.9% 10 ML Syringe FLUSH PRN; fentaNYL 100 MCG/2 ML SDV ONE
[2020-11-21] MEDS ORDERED: fentaNYL 100 MCG/2 ML SDV IV ONE ×3 (06:28→08:19)
[2020-11-21] MEDS ORDERED: Midazolam 1 MG/ML 2 ML SDV IV ONE ×7 (06:28→08:40)
[2020-11-21 11:01] VITALS: BP 114/62; PULSE 62
--- NOTE | 2020-11-21 12:47 | OR ---
DATE: 11/21/2020 PROCEDURE: Total colonoscopy. INSTRUMENT USED: [id number] Olympus video colonoscope. PREMEDICATIONS: Fentanyl 100 mcg intravenous, Versed 3 mg intravenous. Nasal O2 cannula. The procedure was done under pulse oximetry, BP recording, and vehicle monitor technician. INDICATION: The patient with recent alteration in bowel habits. Unexplained and not responsive to medical measures. Colonoscopic examination is done for detection of any polypoid lesions and removal, endoscopic hemostasis therapy if needed. DESCRIPTION OF PROCEDURE: Initial rectal exam was unremarkable. Rigid anoscopy showed small internal hemorrhoids without bleeding from them. The colonoscope was passed with ease. Numerous scattered diverticula were noted in the distal left colon along with some deformity. The scope was passed with ease up to the ileocecal area. Photographs were taken of the normal-appearing cecum identified by landmarks of appendiceal orifice and double-bulged ileocecal folds. No bleeding was noted from any of the visualized areas at the commencement of the examination. Bowel preparation by [place] criteria scale 2 in all the regions, total score 6. There was moderate amount of solid fecal material that had to be aspirated. No stricture, no vascular ectasia. No large isolated ulcerations seen. No evidence of diffuse inflammatory bowel disease in the form of friability, contact bleeding, or ulcerations. No polyp or tumor mass identified. Probing the proximal sides of folds and flexures using adequate distention and clearing up the stool material, withdrawal of the scope was made. Cecum to rectum time over 6 minutes. No bleeding was noted from any of the visualized areas at the completion of examination. IMPRESSION: 1. Internal hemorrhoids. 2. Diverticulosis. The patient tolerated the procedure well. [facility] /[id number]
== END 2020-11-21 10:40 | disposition home or self-care (01) ==
LOC: DL.ENDO 06:27
PROVIDERS: ATTEND Internal Medicine Gastroenterology
DX: K57.30 Diverticulosis of large intestine without perforation or abscess without bleeding (principal); K64.8 Other hemorrhoids; I25.10 Atherosclerotic heart disease of native coronary artery without angina pectoris; N18.9 Chronic kidney disease, unspecified; G47.33 Obstructive sleep apnea (adult) (pediatric); Z85.51 Personal history of malignant neoplasm of bladder; Z95.1 Presence of aortocoronary bypass graft
CPT/HCPCS: J2250; J3010; J7042

== ENCOUNTER 2022-02-13 10:42 | Inpatient (IN) | payer MEDICARE, OTHER ==
[2022-02-13] MEDS ORDERED: Temazepam 15 MG Cap PO PRN (11:20)
[2022-02-13] MEDS ORDERED: Acetaminophen 325 MG Tab PO PRN (11:20)
[2022-02-13] MEDS ORDERED: Sodium Chloride 0.9% 10 ML Syringe FLUSH PRN (11:20)
[2022-02-13] MEDS ORDERED: Ondansetron 4 MG/2 ML SDV IVPUSH PRN (11:20)
[2022-02-13] MEDS ORDERED: LORazepam 0.5 MG Tab PO PRN (12:02)
[2022-02-13] MEDS ORDERED: Heparin Sodium 5,000 Units/ML Vial SUBCUT SCH (14:00)
[2022-02-13] MEDS ORDERED: Aspirin 81 MG Tab.EC PO SCH (14:30)
[2022-02-13] MEDS ORDERED: Warfarin 2 MG Tab PO ONE (15:15)
[2022-02-13] MEDS: Sodium Chloride 0.9% 1,000 ML IV SCH (15:17)
[2022-02-13] MEDS ORDERED: WARFARIN 4 MG PO ONE (15:30)
[2022-02-13] MEDS ORDERED: PRAVASTATIN 40 MG PO SCH (21:00)
[2022-02-13] MEDS: Sodium Chloride 0.9% 10 ML Syringe FLUSH SCH (21:34)
[2022-02-13] MEDS: TROSPIUM 20 MG PO SCH (21:35)
[2022-02-14] MEDS: Sodium Chloride 0.9% 1,000 ML IV SCH (05:03)
[2022-02-14 08:06] LABS: ANION GAP 16.3 mEq/L (7-13)
[2022-02-14] MEDS ORDERED: Clopidogrel 75 MG Tab **PT OWN MED PO SCH (09:00)
[2022-02-14] MEDS ORDERED: Tamsulosin 0.4 MG Cap.ER **PT OWN MED PO SCH (09:00)
[2022-02-14] MEDS ORDERED: FINASTERIDE 5 MG PO SCH (09:00)
[2022-02-14] MEDS ORDERED: Allopurinol 100 MG Tab **PT OWN MED PO SCH (09:00)
[2022-02-14] MEDS ORDERED: Metoprolol Succinate 50 MG Tab.ER **PT OWN MED PO SCH (09:00)
[2022-02-14] MEDS ORDERED: MIRABEGRON 50 MG PO SCH (09:00)
[2022-02-14] MEDS: Sodium Chloride 0.9% 10 ML Syringe FLUSH SCH (09:04)
[2022-02-14] MEDS: TROSPIUM 20 MG PO SCH (09:04)
[2022-02-14 13:54] VITALS: BP 118/61; PULSE 68
[2022-02-14] MEDS ORDERED: WARFARIN 4 MG PO ONE (14:00)
== END 2022-02-14 13:30 | disposition home or self-care (01) | DRG 683 ==
LOC: OBSVTOIN 10:42 → DL.MS 10:42 → INTOOBSV 10:42 → UNDOADMOB 10:42
PROVIDERS: ADMIT Internal Medicine; ATTEND Internal Medicine
DX: N17.9 Acute kidney failure, unspecified (principal); I42.9 Cardiomyopathy, unspecified; I25.10 Atherosclerotic heart disease of native coronary artery without angina pectoris; R73.03 Prediabetes; R31.9 Hematuria, unspecified; I12.9 Hypertensive chronic kidney disease with stage 1 through stage 4 chronic kidney disease, or unspecified chronic kidney disease; N13.30 Unspecified hydronephrosis; E78.00 Pure hypercholesterolemia, unspecified; Z20.822 Contact with and (suspected) exposure to COVID-19; N40.1 Benign prostatic hyperplasia with lower urinary tract symptoms; M19.90 Unspecified osteoarthritis, unspecified site; M54.9 Dorsalgia, unspecified; G89.29 Other chronic pain; E66.9 Obesity, unspecified; G47.30 Sleep apnea, unspecified; R33.8 Other retention of urine; Z95.1 Presence of aortocoronary bypass graft; Z79.01 Long term (current) use of anticoagulants; Z95.2 Presence of prosthetic heart valve; Z85.51 Personal history of malignant neoplasm of bladder; I25.2 Old myocardial infarction; Z95.0 Presence of cardiac pacemaker; Z95.5 Presence of coronary angioplasty implant and graft; Z79.899 Other long term (current) drug therapy; Z87.891 Personal history of nicotine dependence; Z68.30 Body mass index [BMI] 30.0-30.9, adult
CPT/HCPCS: 36415; 76770; 80048; 81001; 85025; 85610; 97161-GP; 99223; 99239; A9270-GY; J3490; J7030; U0002

== ENCOUNTER 2022-02-28 04:07 | Observation (INO) | payer MEDICARE, OTHER ==
[2022-02-28 04:42] LABS: ANION GAP 15.6 mEq/L (7-13)
[2022-02-28] MEDS ORDERED: Acetaminophen/HYDROcodone 325-5 MG Tab PO ONE (04:45)
[2022-02-28] MEDS ORDERED: Acetaminophen/HYDROcodone 325-10 MG Tab PO PRN (07:34)
[2022-02-28] MEDS ORDERED: Temazepam 15 MG Cap PO PRN (07:34)
[2022-02-28] MEDS ORDERED: Acetaminophen 325 MG Tab PO PRN (07:34)
[2022-02-28] MEDS ORDERED: Albuterol/Ipratropium 3.0-0.5 MG/3 ML Neb Soln NEB PRN (07:34)
[2022-02-28] MEDS ORDERED: Morphine 2 MG/ML SYRINGE IVPUSH PRN (07:34)
[2022-02-28] MEDS ORDERED: Ondansetron 4 MG Tab.DIS PO PRN (07:34)
[2022-02-28] MEDS ORDERED: methylPREDNISolone Sodium Succinate 125 MG/2 ML SDV IVPUSH ONE (07:45)
[2022-02-28] MEDS ORDERED: Sodium Chloride 0.9% 10 ML Syringe FLUSH PRN (09:10)
[2022-02-28 16:32] VITALS: BP 121/54; PULSE 76
== END 2022-02-28 17:10 | disposition home or self-care (01) ==
LOC: DL.ED 04:07 → DL.MS 06:56 → DL.ED 06:59
PROVIDERS: ADMIT Internal Medicine; ATTEND Internal Medicine
DX: M17.12 Unilateral primary osteoarthritis, left knee (principal); M10.9 Gout, unspecified; R53.1 Weakness; I25.10 Atherosclerotic heart disease of native coronary artery without angina pectoris; E78.00 Pure hypercholesterolemia, unspecified; I25.2 Old myocardial infarction; I12.9 Hypertensive chronic kidney disease with stage 1 through stage 4 chronic kidney disease, or unspecified chronic kidney disease; N18.9 Chronic kidney disease, unspecified; N40.0 Benign prostatic hyperplasia without lower urinary tract symptoms; E66.9 Obesity, unspecified; Z68.30 Body mass index [BMI] 30.0-30.9, adult; Z95.5 Presence of coronary angioplasty implant and graft; Z88.8 Allergy status to other drugs, medicaments and biological substances; Z95.1 Presence of aortocoronary bypass graft; Z79.899 Other long term (current) drug therapy; Z79.02 Long term (current) use of antithrombotics/antiplatelets; Z79.01 Long term (current) use of anticoagulants; Z98.890 Other specified postprocedural states
CPT/HCPCS: 36415; 71046; 73562-LT; 80053; 81001; 83605; 84550; 85025; 85610; 86140; 87040; 87086; 96374; 97161-GP; 99283; 99285-25; A9270-GY; G0378; J2930

== ENCOUNTER 2022-04-01 13:18 | Inpatient (IN) | payer MEDICARE, OTHER ==
[2022-04-01] MEDS ORDERED: Bisacodyl 5 MG Tab PO PRN (14:41)
[2022-04-01] MEDS ORDERED: Polyethylene Glycol 3350 Powder 17 GM Packet PO PRN (14:41)
[2022-04-01] MEDS ORDERED: Docusate Sodium 100 MG Cap PO PRN (14:41)
[2022-04-01] MEDS ORDERED: Albuterol/Ipratropium 3.0-0.5 MG/3 ML Neb Soln NEB PRN (14:41)
[2022-04-01] MEDS ORDERED: Magnesium Hydroxide 400 MG/5 ML Susp 30 ML Cup PO PRN (14:41)
[2022-04-01] MEDS ORDERED: HYDROmorphone 0.5 MG/0.5 ML Syringe IVPUSH PRN (14:41)
[2022-04-01] MEDS ORDERED: Ondansetron 4 MG/2 ML SDV IVPUSH PRN (14:41)
[2022-04-01] MEDS ORDERED: Lidocaine 2% Jelly 10 ML Urojet MUCMEM ONE (17:02)
[2022-04-01] MEDS ORDERED: Lidocaine 2% Jelly 10 ML Urojet ONE (17:06)
[2022-04-01] MEDS ORDERED: Polyvinyl Alcohol 1.4% Ophth Soln 15 ML Bottle EYEBOTH PRN (17:49)
[2022-04-01] MEDS: Acetaminophen 325 MG Tab PO PRN (19:31)
[2022-04-01] MEDS ORDERED: Metoclopramide 10 MG/2 ML SDV IVPUSH PRN (20:05)
[2022-04-01] MEDS ORDERED: Lactated Ringers 1,500 ML IV ONE (20:57)
[2022-04-01] MEDS ORDERED: Zolpidem 5 MG Tab PO PRN (21:00)
[2022-04-01] MEDS ORDERED: cefTRIAXone 1 GM in Sodium Chloride 0.9% 50 ML IV SCH (21:00)
[2022-04-01] MEDS: Pravastatin 20 MG Tab PO SCH (21:11)
[2022-04-01] MEDS ORDERED: Acetaminophen/Butalbital/Caffeine 325-50-40 MG Tab PO PRN (21:47)
[2022-04-01 21:53] LABS: ANION GAP 13.2 mEq/L (7-13)
[2022-04-01] MEDS ORDERED: Meropenem 1 GM in Sodium Chloride 0.9% 100 ML IV SCH (22:00)
[2022-04-01] MEDS: Meropenem 500 MG in Sodium Chloride 0.9% 100 ML IV SCH (22:22)
[2022-04-01] MEDS: Sodium Chloride 0.9% 1,000 ML IV SCH (22:57)
[2022-04-02] MEDS ORDERED: Midodrine 2.5 MG Tab PO ONE (00:33)
[2022-04-02] MEDS ORDERED: Midodrine 2.5 MG Tab PO PRN (00:34)
[2022-04-02] MEDS: Acetaminophen 325 MG Tab PO PRN ×2 (04:02→16:37)
[2022-04-02] MEDS: Sodium Chloride 0.9% 1,000 ML IV SCH (04:16)
[2022-04-02 07:20] LABS: ANION GAP 11.8 mEq/L (7-13)
[2022-04-02] MEDS: Metoprolol Succinate 50 MG Tab.ER PO SCH (08:39)
[2022-04-02] MEDS: Finasteride 5 MG Tab PO SCH (08:39)
[2022-04-02] MEDS: Allopurinol 100 MG Tab PO SCH (08:39)
[2022-04-02] MEDS: Tamsulosin 0.4 MG Cap.ER PO SCH (08:40)
[2022-04-02] MEDS: Meropenem 500 MG in Sodium Chloride 0.9% 100 ML IV SCH ×2 (09:24→21:57)
[2022-04-02] MEDS ORDERED: Clopidogrel 75 MG Tab PO SCH (13:00)
[2022-04-02] MEDS ORDERED: DICLOFENAC TOP PRN (14:00)
[2022-04-02] MEDS ORDERED: MIRABEGRON 50 MG PO SCH (14:00)
[2022-04-02] MEDS: Acetaminophen/HYDROcodone 325-5 MG Tab PO PRN ×2 (14:50→22:00)
[2022-04-02] MEDS: TROSPIUM 20 MG PO SCH (21:58)
[2022-04-02] MEDS: Pravastatin 20 MG Tab PO SCH (21:58)
[2022-04-03 07:01] LABS: ANION GAP 13.9 mEq/L (7-13)
[2022-04-03 07:50] VITALS: BP 114/47; PULSE 72
[2022-04-03] MEDS: Finasteride 5 MG Tab PO SCH (09:54)
[2022-04-03] MEDS: Tamsulosin 0.4 MG Cap.ER PO SCH (09:55)
[2022-04-03] MEDS: Allopurinol 100 MG Tab PO SCH (09:55)
[2022-04-03] MEDS: TROSPIUM 20 MG PO SCH (09:55)
[2022-04-03] MEDS: Metoprolol Succinate 50 MG Tab.ER PO SCH (09:58)
[2022-04-03] MEDS: Meropenem 500 MG in Sodium Chloride 0.9% 100 ML IV SCH (10:00)
== END 2022-04-03 11:30 | disposition home or self-care (01) | DRG 872 ==
LOC: INTOOBSV 13:18 → DL.MS 13:18 → OBSVTOIN 04-02 08:45
PROVIDERS: ADMIT Internal Medicine; ATTEND Internal Medicine
PROC: XW033N5 Introduction of Meropenem-vaborbactam Anti-infective into Peripheral Vein, Percutaneous Approach, New Technology Group 5 (ICD-10-PCS; principal; 2022-04-01)
DX: A41.9 Sepsis, unspecified organism (principal); N17.9 Acute kidney failure, unspecified; R33.9 Retention of urine, unspecified; R31.0 Gross hematuria; I42.9 Cardiomyopathy, unspecified; N39.0 Urinary tract infection, site not specified; Z92.21 Personal history of antineoplastic chemotherapy; R33.8 Other retention of urine; R31.9 Hematuria, unspecified; N18.30 Chronic kidney disease, stage 3 unspecified; N18.32 Chronic kidney disease, stage 3b; I25.10 Atherosclerotic heart disease of native coronary artery without angina pectoris; E78.5 Hyperlipidemia, unspecified; M10.9 Gout, unspecified; R73.03 Prediabetes; D63.1 Anemia in chronic kidney disease; I44.2 Atrioventricular block, complete; E78.00 Pure hypercholesterolemia, unspecified; F41.9 Anxiety disorder, unspecified; G47.33 Obstructive sleep apnea (adult) (pediatric); E66.9 Obesity, unspecified; N40.1 Benign prostatic hyperplasia with lower urinary tract symptoms; Z79.02 Long term (current) use of antithrombotics/antiplatelets; M19.90 Unspecified osteoarthritis, unspecified site; M54.9 Dorsalgia, unspecified; G89.29 Other chronic pain; Z98.1 Arthrodesis status; I12.9 Hypertensive chronic kidney disease with stage 1 through stage 4 chronic kidney disease, or unspecified chronic kidney disease; D63.8 Anemia in other chronic diseases classified elsewhere; Z88.8 Allergy status to other drugs, medicaments and biological substances; Z79.01 Long term (current) use of anticoagulants; Z95.2 Presence of prosthetic heart valve; Z95.1 Presence of aortocoronary bypass graft; I25.2 Old myocardial infarction; Z95.5 Presence of coronary angioplasty implant and graft; Z87.891 Personal history of nicotine dependence; Z79.899 Other long term (current) drug therapy; Z68.30 Body mass index [BMI] 30.0-30.9, adult; Z95.0 Presence of cardiac pacemaker; Z85.51 Personal history of malignant neoplasm of bladder
CPT/HCPCS: 36415 ×2; 51700 ×6; 51702; 80048; 80053; 82533; 83605; 83735; 84145; 85025 ×2; 85610 ×2; 85651; 86140 ×2; 87040 ×2; A9270 ×8; J1170; J2185; J2405; J7030 ×2; J7120; 96365; 96375; 96376; G0378; G0379

== ENCOUNTER 2022-05-28 18:44 | Emergency (ER) | payer MEDICARE, OTHER | END 2022-05-28 19:40 | disposition left against medical advice (07) | LOC: DL.ED 18:44 | DX: Z53.21 Procedure and treatment not carried out due to patient leaving prior to being seen by health care provider (principal) ==

== ENCOUNTER 2022-05-29 12:16 | Emergency (ER) | payer MEDICARE, OTHER ==
[2022-05-29 12:38] VITALS: BP 143/62; PULSE 88
[2022-05-29] MEDS ORDERED: Sodium Chloride 0.9% 10 ML Syringe FLUSH PRN (12:46)
[2022-05-29 13:09] LABS: ANION GAP 15.7 mEq/L (7-13)
[2022-05-29 13:09] LABS: CORONAVIRUS COVID-19 NAA NEGATIVE (NEGATIVE)
== END 2022-05-29 15:42 | disposition home or self-care (01) ==
LOC: DL.ED 12:16
DX: T83.511A Infection and inflammatory reaction due to indwelling urethral catheter, initial encounter (principal); N39.0 Urinary tract infection, site not specified; I25.10 Atherosclerotic heart disease of native coronary artery without angina pectoris; E78.00 Pure hypercholesterolemia, unspecified; I12.9 Hypertensive chronic kidney disease with stage 1 through stage 4 chronic kidney disease, or unspecified chronic kidney disease; N18.32 Chronic kidney disease, stage 3b; I25.2 Old myocardial infarction; Z88.8 Allergy status to other drugs, medicaments and biological substances; Z79.899 Other long term (current) drug therapy; Z79.01 Long term (current) use of anticoagulants; Z20.822 Contact with and (suspected) exposure to COVID-19
CPT/HCPCS: 0240U; 36415; 71045; 74176; 80053; 81001; 82150; 83605; 83690; 84145; 85025; 86140; 87040; 87086; 87186; 99284; 87077; 87088

== ENCOUNTER 2022-09-02 01:20 | Emergency (ER) | payer MEDICARE, OTHER ==
[2022-09-25 14:03] LABS: ANION GAP 10.7 mEq/L (7-13); CHLORIDE,CL 101 mmol/L (98-107); ESTIMATED GFR 51 mL/min (>=60); SODIUM,NA 136 mmol/L (136-145)
== END 2022-09-02 15:26 | disposition home or self-care (01) ==
LOC: DL.ED 01:20
DX: I10 Essential (primary) hypertension (principal)
CPT/HCPCS: 99283